=== PATIENT | female | born 1940 | race Caucasian/White ===

== ENCOUNTER 2017-05-20 09:58 | Emergency (ER) | payer OTHER, MEDICARE ==
[~2017-05-20] VITALS: Ht 154.9 cm; Wt 56.0 kg
[2017-05-20] MEDS ORDERED: METO25TA2 PO (10:35)
[2017-05-20] MEDS ORDERED: POTA10CA PO (10:35)
[2017-05-20] MEDS ORDERED: VALS320T2 PO (10:35)
[2017-05-20] MEDS ORDERED: HYDR12.53 PO (10:35)
[2017-05-20 10:57] LABS: BLOOD UREA NITROGEN 19 mg/dL (7-18)
[2017-05-20 11:02] LABS: IS PT STATUS REG ER OR PRE ER? YES
[2017-05-20 11:28] VITALS: BP 170/85
== END 2017-05-20 12:05 | disposition home or self-care (01) ==
LOC: ED 11:41
DX: I10 Essential (primary) hypertension (principal); Z90.710 Acquired absence of both cervix and uterus
CPT/HCPCS: 36415; 71010; 80048; 82040; 83880; 84484; 85025; 93005; 99285